=== PATIENT | male | born 1980 | race Caucasian/White ===

== ENCOUNTER 2019-11-20 18:07 | Emergency (ER) | payer SELFPAY ==
[2019-11-20] MEDS ORDERED: NORMAL SALINE 1000 ML 1,000 ML IV ONE (19:15)
[2019-11-20] MEDS ORDERED: LORAZEPAM INJ 2 MG/1 ML VIAL IV ONE ×2 (19:15→21:18)
--- NOTE | 2019-11-20 19:20 | ER Document Report ---
ED Medical Screen (RME) - General Chief Complaint: Medical Clearance Stated Complaint: MEDICAL CLEARANCE/CHERRY Time Seen by Provider: 11/20/19 19:08 Notes: Patient is a 39-year-old male who presents emergency department with a chief complaint of medical clearance. Patient reports he has been drinking heavily over the past 2 months. Patient reports he can drink about 1 to 2 pints of vodka daily. Patient reports his last drink was at 4:30 AM this morning which is about 14 hours ago. Patient reports he starting to feel bilateral hand tremors. Patient denies hallucinations. Patient did go to [place] to check in for rehab but was told his alcohol level was too high. He was told to come here to the emergency department for medical clearance. 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 TRAVEL OUTSIDE OF THE [place] IN LAST 30 DAYS: No - Related Data Allergies/Adverse Reactions: No Known Allergies Allergy (Unverified 11/20/19 19:01) Past Medical History - Social History Chew tobacco use (# tins/day): No Drug Abuse: None Physical Exam - Vital signs Vitals: Temp Pulse Resp BP Pulse Ox 98.3 F 111 H 16 140/90 H 100 11/20/19 18:43 11/20/19 18:43 11/20/19 18:43 11/20/19 18:43 11/20/19 18:43 Course - Re-evaluation Re-evalutation: 11/20/19 19:18 Patient is alert and oriented in triage. No acute distress. Patient calm and cooperative. I have greeted and performed a rapid initial assessment of this patient. A comprehensive ED assessment and evaluation of the patient, analysis of test results and completion of the medical decision making process will be conducted by additional ED providers. - Vital Signs Vital signs: Temp Pulse Resp BP Pulse Ox 98.3 F 111 H 16 140/90 H 100 11/20/19 18:43 11/20/19 18:43 11/20/19 18:43 11/20/19 18:43 11/20/19 18:43
[2019-11-20 20:16] LABS: ABSOLUTE BASOPHILS # (AUTO) 0.1 10^3/uL (0.0-0.2); ABSOLUTE LYMPHOCYTES (AUTO) 1.6 10^3/uL (0.5-4.7); ABSOLUTE MONOCYTES (AUTO) 0.6 10^3/uL (0.1-1.4); BASOPHILS % (AUTO) 0.9 % (0-2); TOTAL CELLS COUNTED % (AUTO) 100 %
[2019-11-20 20:19] LABS: ABSOLUTE NEUT (AUTO) 3.6 10^3/uL (1.7-8.2); EOSINOPHILS % (AUTO) 0.5 % (0-6); HEMATOCRIT 39.2 % (37.9-51.0); LYMPHOCYTES % (AUTO) 27.7 % (13-45); MEAN CORPUSCULAR HEMOGLOBIN 33.5 pg (27.0-33.4); MEAN CORPUSCULAR HGB CONC 35.6 g/dL (32.0-36.0); MEAN CORPUSCULAR VOLUME 94 fl (80-97); MONOCYTES % (AUTO) 9.6 % (3-13); PLATELET COUNT 287 10^3/uL (150-450); RED BLOOD COUNT 4.16 10^6/uL (4.35-5.55); SEGMENTED NEUTROPHILS % (AUTO) 61.3 % (42-78); WHITE BLOOD COUNT 5.9 10^3/uL (4.0-10.5)
[2019-11-20 20:23] LABS: APPEARANCE,URINE CLEAR; BILIRUBIN,URINE NEGATIVE (NEGATIVE); COLOR,URINE YELLOW; GLUCOSE, URINE NEGATIVE (NEGATIVE); KETONES,URINE NEGATIVE (NEGATIVE); LEUKOCYTE ESTERASE,URINE NEGATIVE (NEGATIVE); NITRITE,URINE NEGATIVE (NEGATIVE); PROTEIN,URINE 30 mg/dL (NEGATIVE); URINE SPECIFIC GRAVITY 1.016; UROBILINOGEN,URINE NEGATIVE mg/dL (<2.0)
[2019-11-20 20:44] LABS: ACETAMINOPHEN < 10 ug/mL (10-30); ALBUMIN 5.1 g/dL (3.5-5.0); ALCOHOL 225 mg/dL (NONE DETECTED); ALKALINE PHOSPHATASE 64 U/L (38-126); ANION GAP 14 (5-19); ASPARTATE AMINO TRANSFERASE 63 U/L (17-59); BILIRUBIN,DIRECT 0.3 mg/dL (0.0-0.4); BILIRUBIN,TOTAL 0.5 mg/dL (0.2-1.3); BLOOD UREA NITROGEN 14 mg/dL (7-20); CALCIUM 9.5 mg/dL (8.4-10.2); CARBON DIOXIDE 28 mmol/L (22-30); CHLORIDE 99 mmol/L (98-107); GLUCOSE 87 mg/dL (75-110); POTASSIUM 4.7 mmol/L (3.6-5.0); SALICYLATE < 1.0 mg/dL (2.0-20.0); TOTAL PROTEIN 8.2 g/dL (6.3-8.2)
[2019-11-20 21:22] LABS: URINE AMPHETAMINES SCREEN NEGATIVE; URINE BARBITURATES SCREEN NEGATIVE; URINE BENZODIAZEPINES SCREEN NEGATIVE; URINE COCAINE SCREEN NEGATIVE; URINE MARIJUANA (THC) SCREEN NEGATIVE; URINE METHADONE SCREEN NEGATIVE; URINE PHENCYCLIDINE SCREEN NEGATIVE
--- NOTE | 2019-11-20 21:28 | ER Document Report ---
ED General - General Chief Complaint: Medical Clearance Stated Complaint: MEDICAL CLEARANCE/BLUEJACKET Time Seen by Provider: 11/20/19 19:08 Notes: 39-year-old male sent to the emergency department from [facility] for medical clearance. Patient has a history of heavy alcohol use, quit drinking for approximately 1 year and then started drinking again heavily 2 months ago, states for the past 3 weeks he has not wanted to drink but has been drinking to prevent symptoms of withdrawal. States that if he does not drink he develops shaking, anxiety, sweats and insomnia. Patient is drinking 1 to 2 pints of vodka a day. Patient went to [facility] and was found to have an alcohol level above 200 so he was sent here. Patient has no other complaints. TRAVEL OUTSIDE OF THE [place] IN LAST 30 DAYS: No - Related Data Allergies/Adverse Reactions: No Known Allergies Allergy (Unverified 11/20/19 19:01) Past Medical History - General Information source: Patient - Social History Smoking Status: Never Smoker Chew tobacco use (# tins/day): Yes Frequency of alcohol use: Heavy Drug Abuse: None Family History: Reviewed & Not Pertinent Patient has suicidal ideation: No Patient has homicidal ideation: No Review of Systems - Review of Systems Constitutional: See HPI, Diaphoresis Gastrointestinal: No symptoms reported. denies: Abdomen distended, Abdominal pain, Vomiting Neurological/Psychological: See HPI, Anxiety -: Yes All other systems reviewed and negative Physical Exam - Vital signs Vitals: Temp Pulse Resp BP Pulse Ox 98.3 F 111 H 16 140/90 H 100 11/20/19 18:43 11/20/19 18:43 11/20/19 18:43 11/20/19 18:43 11/20/19 18:43 Interpretation: Hypertensive, Tachycardic - Notes Notes: GENERAL: Alert, interacts well. Appears mildly anxious, slight tremor. HEAD: Normocephalic, atraumatic EYES: Pupils equal, round and reactive to light, extraocular movements intact. ENT: Oral mucosa moist, tongue midline. NECK: Full range of motion, supple, trachea midline. LUNGS: Clear to auscultation bilaterally, no wheezes, rales or rhonchi, no respiratory distress. HEART: Slight tachycardia rate and rhythm, no murmurs, gallops, rubs. ABDOMEN: Soft, nontender, nondistended, bowel sounds present in all 4 quadrants. EXTREMITIES: Moves all 4 extremities spontaneously, no edema, radial and dorsalis pedis pulses 2/4 bilaterally. No cyanosis. NEUROLOGICAL: Alert and oriented x3, normal speech, biceps and patellar DTRs 2+ bilaterally. Mild tremor. PSYCH: Mild anxiety. SKIN: Warm, Dry, normal turgor, no rashes or lesions noted. Course - Re-evaluation Re-evalutation: 11/20/19 21:26 CBC unremarkable, CMP unremarkable only minimally elevated AST, urinalysis shows small blood but only 1 RBC, salicylates and acetaminophen undetectable, alcohol level 225. 11/20/19 21:28 Urine drug screen is negative. Patient we will be watched for another 30 minutes, given another milligram of Ativan for his mild withdrawal symptoms, by 10 PM his alcohol level should be below 200 and he will be sent back to [place]. [place] is aware he will be returning, they have a bed available. Patient is agreeable to this plan. - Vital Signs Vital signs: Temp Pulse Resp BP Pulse Ox 98.2 F 111 H 18 142/83 H 98 11/20/19 20:27 11/20/19 18:43 11/20/19 20:27 11/20/19 20:27 11/20/19 20:27 - Laboratory Result Diagrams: 11/20/19 19:14 11/20/19 19:47 Laboratory results interpreted by me: 11/20/19 11/20/19 11/20/19 19:14 19:47 19:47 RBC 4.16 L MCH 33.5 H AST 63 H Albumin 5.1 H Urine Protein 30 H Urine Blood SMALL H Salicylates < 1.0 L Acetaminophen < 10 L - EKG Interpretation by Me Additional EKG results interpreted by me: 11/20/19 21:27 EKG shows mild sinus tachycardia at a rate of 101, normal axis, normal intervals, no ST segment elevations or depressions, no T wave inversions per my interpretation. Discharge - Discharge Clinical Impression: Alcohol abuse Alcohol withdrawal Qualifiers: Complication of substance-induced condition: uncomplicated Qualified Code(s): F10.230 - Alcohol dependence with withdrawal, uncomplicated Condition: Stable Disposition: PSYCH HOSP/UNIT Additional Instructions: Please go directly to [place] [facility]. They have a bed available. It was a pleasure to meet you today. I am very proud of you for seeking help.
[2019-11-20 21:55] VITALS: BP 129/88
--- NOTE | 2019-11-21 22:32 | EKG REPORT ---
SEVERITY:- OTHERWISE NORMAL ECG - SINUS TACHYCARDIA : Confirmed by: Sridhar Amaral 21-Nov-2019 22:31:58
== END 2019-11-20 22:05 ==
LOC: ER 18:07
DX: F10.230 Alcohol dependence with withdrawal, uncomplicated (principal); R61 Generalized hyperhidrosis; F41.9 Anxiety disorder, unspecified
CPT/HCPCS: 93005; 36415; 80307 ×4; 85025; 80053; 81001; 93010; J2060; J7030; 96361; 96374; 96376; 99283